=== PATIENT | male | born 1955 | race Caucasian/White ===

== ENCOUNTER → 2018-05-19 | Outpatient (CLI) | payer OTHER ==
[~2018-05-19] VITALS: Ht 177.8 cm; Wt 87.1 kg
[~2018-05-19] MED LIST: GLUCOPHAGE XR500 MG PO; LEVEMIR FL100 UNIT/2 SUBQ; LIPITOR80 MG PO; LISINOPRIL10 MG PO; LO-DOSE ASPIRIN81 M1 PO; PROZAC 10 MG CA10 MG PO; TRAZODONE HCL100 MG PO; VALIUM5 MG PO
[2018-05-19 14:14] VITALS: BP 127/79
== END ==
LOC: PAIN 07:07
DX: M54.2 Cervicalgia (principal); R51 Headache; Z79.899 Other long term (current) drug therapy

== ENCOUNTER → 2018-05-31 | Outpatient (CLI) | payer OTHER ==
[~2018-05-31] VITALS: Ht 177.8 cm; Wt 85.7 kg
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
[2018-05-31 09:43] VITALS: BP 135/78
== END | disposition home or self-care (01) ==
LOC: PAIN 06:47
DX: M54.81 Occipital neuralgia (principal); M54.2 Cervicalgia; E11.9 Type 2 diabetes mellitus without complications; K76.9 Liver disease, unspecified; Z87.891 Personal history of nicotine dependence; Z79.899 Other long term (current) drug therapy; Z79.82 Long term (current) use of aspirin; Z79.4 Long term (current) use of insulin